=== PATIENT | female | born 1985 | race African-American/Black ===

== ENCOUNTER 2021-10-28 07:56 | Emergency (ER) | payer OTHER, SELFPAY ==
[2021-10-28] MEDS ORDERED: Ondansetron PF 4 MG/2 ML Vial ONE (08:33)
[2021-10-28 08:46] LABS: #Eosinphils 0.2 10x3/uL (0.0-0.5); #Monocytes 0.6 10x3/uL (0.0-1.1); #Neutrophils 5.2 10x3/uL (1.5-8.4); %Basophils 0.5 % (0.0-2.0); %Eosinophils 2.1 % (0.0-6.0); %Lymphocytes 20.1 % (18.0-47.0); %Monocytes 8.3 % (0.0-10.0); %Neutrophils 68.9 % (40.0-75.0); Hemoglobin 11.7 g/dL (12.0-15.5); Mean Corpuscular HGB CONC 32.1 g/dL (32.0-36.0); Mean Corpuscular Hemoglobin 23.9 pg (27.0-33.0); Mean Corpuscular Volume 74.4 fl (81.6-98.3); Platelet Count 384 10x3/uL (150-450); RBC Distribution Width 22.5 % (11.5-14.5); Red Blood Cell (RBC) Count 4.89 10x6/uL (3.90-5.03); White Blood Cell (WBC) Count 7.6 10x3/uL (3.5-10.5)
[2021-10-28 08:51] LABS: ALT (SGPT) 17 U/L (8-55); AST (SGOT) 14 U/L (5-34); Alkaline Phosphatase 44 U/L (40-110); Anion Gap 14 mmol/L (10-20); BUN (Urea Nitrogen) 8 mg/dL (7.0-18.7); Bilirubin, Total 0.4 mg/dL (0.2-1.2); Calc. Creatinine Clearance 0 mL/min (70-130); Calcium 9.7 mg/dL (7.8-10.44); Carbon Dioxide 20 mmol/L (22-29); Chloride 106 mmol/L (98-107); Globulin 3.1 g/dL (2.4-3.5); Glucose 86 mg/dL (70-105); Lipase 10 U/L (8-78); Potassium 3.8 mmol/L (3.5-5.1); Protein, Total 7.1 g/dL (6.0-8.3); Sodium 136 mmol/L (136-145)
[2021-10-28 09:11] LABS: Anisocytosis MODERATE=16-30 cells (100X) (0-5/hpf)
[2021-10-28 09:12] LABS: Microcytosis SLIGHT = 6-15 cells (100X) (0-5/hpf); Ovalocytes MODERATE= 6-15 cells (100X) (0-1/hpf)
[2021-10-28 09:19] LABS: Platelet Morphology Comment Appears Adequate
[2021-10-28] MEDS ORDERED: Metoclopramide HCl 10 MG/2 ML VIAL ONE (09:24)
== END 2021-10-28 10:45 | disposition home or self-care (01) ==
LOC: CSHERS 07:56
DX: O21.9 Vomiting of pregnancy, unspecified (principal); Z3A.08 8 weeks gestation of pregnancy
CPT/HCPCS: 36415; 80053; 82010; 83690; 85025; 96365; 96366; 96368; 96375; J2405; J2765

== ENCOUNTER 2021-12-09 07:01 | Emergency (ER) | payer MEDICAID, OTHER ==
[2021-12-09] MEDS ORDERED: Ondansetron PF 4 MG/2 ML Vial ONE (07:35)
[2021-12-09] MEDS ORDERED: Metoclopramide HCl 10 MG/2 ML VIAL ONE (07:35)
[2021-12-09 07:36] LABS: #Eosinphils 0.1 10x3/uL (0.0-0.5); #Monocytes 0.5 10x3/uL (0.0-1.1); %Basophils 0.4 % (0.0-2.0); %Eosinophils 1.2 % (0.0-6.0); %Lymphocytes 14.6 % (18.0-47.0); %Monocytes 6.9 % (0.0-10.0); %Neutrophils 76.6 % (40.0-75.0); Hemoglobin 11.6 g/dL (12.0-15.5); Mean Corpuscular HGB CONC 32.8 g/dL (32.0-36.0); Mean Corpuscular Hemoglobin 25.8 pg (27.0-33.0); Mean Corpuscular Volume 78.7 fl (81.6-98.3); Mean Platelet Volume 10.2 fl (7.4-10.4); Platelet Count 325 10x3/uL (150-450); RBC Distribution Width 17.5 % (11.5-14.5); White Blood Cell (WBC) Count 7.8 10x3/uL (3.5-10.5)
[2021-12-09 07:52] LABS: ALT (SGPT) 12 U/L (8-55); AST (SGOT) 12 U/L (5-34); Albumin 3.7 g/dL (3.5-5.0); Alkaline Phosphatase 43 U/L (40-110); Anion Gap 14 mmol/L (10-20); BUN (Urea Nitrogen) 6 mg/dL (7.0-18.7); Bilirubin, Total 0.4 mg/dL (0.2-1.2); Calc. Creatinine Clearance 0 mL/min (70-130); Calcium 9.2 mg/dL (7.8-10.44); Carbon Dioxide 20 mmol/L (22-29); Chloride 106 mmol/L (98-107); Estimated GFR 110; Globulin 3.1 g/dL (2.4-3.5); Glucose 88 mg/dL (70-105); Lipase 8 U/L (8-78); Potassium 3.5 mmol/L (3.5-5.1); Protein, Total 6.8 g/dL (6.0-8.3); Sodium 136 mmol/L (136-145)
[2021-12-09 08:43] LABS: Bilirubin Neg (Negative); Blood, Urine 25 (Negative); Clarity Clear (Clear); Glucose, Urine (Dipstick) Normal (Negative); Ketone, Urine 150 mg/dL (Negative); Leukocyte Negative (Negative); Nitrite Negative (Negative); Protein, Urine (Dipstick) 30 mg/dl (Neg-Trace); Urobilinogen Normal mg/dL (Less than 2)
[2021-12-09 09:02] LABS: Bacteria/HPF 2+ HPF (None Seen); RBC/HPF 0-3 HPF (0-3); WBC/HPF 0-3 HPF (0-3)
== END 2021-12-09 08:20 | disposition home or self-care (01) ==
LOC: CSHERS 07:01
DX: O21.0 Mild hyperemesis gravidarum (principal); Z3A.14 14 weeks gestation of pregnancy
CPT/HCPCS: 80053; 81003; 81015; 83690; 85025; 93005; 96365; 96375; J2405; J2765

== ENCOUNTER 2021-12-24 07:29 | Inpatient (IN) | payer OTHER ==
[2021-12-24 08:26] LABS: ALT (SGPT) 23 U/L (8-55); AST (SGOT) 14 U/L (5-34); Albumin 3.7 g/dL (3.5-5.0); Alkaline Phosphatase 47 U/L (40-110); Anion Gap 12 mmol/L (10-20); BUN (Urea Nitrogen) 6 mg/dL (7.0-18.7); Bilirubin, Total 0.4 mg/dL (0.2-1.2); Calc. Creatinine Clearance 0 mL/min (70-130); Calcium 9.5 mg/dL (7.8-10.44); Carbon Dioxide 23 mmol/L (22-29); Chloride 105 mmol/L (98-107); Estimated GFR 98; Globulin 3.4 g/dL (2.4-3.5); Glucose 90 mg/dL (70-105); Potassium 3.8 mmol/L (3.5-5.1); Protein, Total 7.1 g/dL (6.0-8.3)
[2021-12-24 08:32] LABS: Sodium 136 mmol/L (136-145)
[2021-12-24] MEDS ORDERED: Promethazine HCl 25 MG/ML VIAL ONE ×2 (08:44→10:07)
[2021-12-24 12:16] LABS: #Eosinphils 0.1 10x3/uL (0.0-0.5); #Monocytes 0.6 10x3/uL (0.0-1.1); #Neutrophils 5.8 10x3/uL (1.5-8.4); %Basophils 0.3 % (0.0-2.0); %Eosinophils 0.8 % (0.0-6.0); %Lymphocytes 15.4 % (18.0-47.0); %Monocytes 7.9 % (0.0-10.0); %Neutrophils 75.3 % (40.0-75.0); Hemoglobin 11.7 g/dL (12.0-15.5); Mean Corpuscular HGB CONC 34.3 g/dL (32.0-36.0); Mean Corpuscular Hemoglobin 26.5 pg (27.0-33.0); Mean Corpuscular Volume 77.1 fl (81.6-98.3); Mean Platelet Volume 9.5 fl (7.4-10.4); Platelet Count 312 10x3/uL (150-450); RBC Distribution Width 16.1 % (11.5-14.5); Red Blood Cell (RBC) Count 4.42 10x6/uL (3.90-5.03); White Blood Cell (WBC) Count 7.7 10x3/uL (3.5-10.5)
[2021-12-24] MEDS ORDERED: Ondansetron PF 4 MG/2 ML Vial ONE (12:17)
[2021-12-24] MEDS ORDERED: Promethazine HCl 25 MG in Sodium Chloride 0.9% 50 ML IVPB PRN (13:49)
[2021-12-24] MEDS ORDERED: Metoclopramide HCl 10 MG/2 ML VIAL IVP SCH (14:00)
[2021-12-24 14:20] LABS: Bilirubin Neg (Negative); Blood, Urine 25 (Negative); Clarity Clear (Clear); Glucose, Urine (Dipstick) Normal (Negative); Ketone, Urine 150 mg/dL (Negative); Leukocyte Negative (Negative); Nitrite Negative (Negative); Protein, Urine (Dipstick) 15 mg/dl (Neg-Trace); Urobilinogen Normal mg/dL (Less than 2)
[2021-12-24 14:34] LABS: Bacteria/HPF Rare-Few HPF (None Seen); Mucous/LPF 1+ LPF (<2+); Squamous Epithelial 0-3 HPF (0-3); WBC/HPF 0-3 HPF (0-3)
[2021-12-24 14:51] LABS: SARS-CoV-2 NAA Rapid Test Not Detected (NotDetected)
[2021-12-24 16:42] VITALS: BMI 29.0
[2021-12-24] MEDS: Lactated Ringer's 1,000 ML IV SCH (16:47)
[2021-12-24 17:57] LABS: Creatinine, Urine 178.71 mg/dL (47-110)
[2021-12-24] MEDS ORDERED: Famotidine/PF 20 mg/2ml Vial SLOW IVP SCH (21:00)
[2021-12-24] MEDS ORDERED: Mirtazapine 15 MG Soltab PO SCH (21:00)
[2021-12-24] MEDS: prednisoLONE 15 MG/5 ML UDCUP PO SCH (21:14)
[2021-12-24] MEDS: Labetalol HCl 100 MG TAB PO SCH (21:15)
[2021-12-25] MEDS: Lactated Ringer's 1,000 ML IV SCH ×2 (00:25→07:24)
[2021-12-25] MEDS ORDERED: Metoclopramide HCl 10 MG/2 ML VIAL IVP SCH (02:00)
[2021-12-25] MEDS ORDERED: Promethazine 25 MG TAB PO PRN (07:15)
[2021-12-25] MEDS: Labetalol HCl 100 MG TAB PO SCH (08:59)
[2021-12-25] MEDS: prednisoLONE 15 MG/5 ML UDCUP PO SCH (08:59)
[2021-12-25] MEDS ORDERED: Famotidine 20 MG TAB PO SCH (09:00)
[2021-12-25] MEDS ORDERED: Metoclopramide HCl 10 MG TAB PO SCH (10:00)
[2021-12-25 12:04] VITALS: BP 127/77; TEMP 98.4
== END 2021-12-25 17:10 | disposition home or self-care (01) | DRG 832 ==
LOC: CSHERS 07:29 → CSHPP 16:16
PROVIDERS: ADMIT Obstetrics & Gynecology; ATTEND Obstetrics & Gynecology
DX: O21.0 Mild hyperemesis gravidarum (principal); O10.912 Unspecified pre-existing hypertension complicating pregnancy, second trimester; O99.322 Drug use complicating pregnancy, second trimester; Z20.822 Contact with and (suspected) exposure to COVID-19; O34.211 Maternal care for low transverse scar from previous cesarean delivery; Z79.899 Other long term (current) drug therapy; Z3A.17 17 weeks gestation of pregnancy; Z88.7 Allergy status to serum and vaccine; F12.90 Cannabis use, unspecified, uncomplicated; Z71.51 Drug abuse counseling and surveillance of drug abuser
CPT/HCPCS: 36415; 80053; 81003; 81015; 82570; 84156; 85025; 87086; 96361; 96365; 96366; 96375; J2405; J2550; J2765; J7120; J7510; S0028; U0002

== ENCOUNTER 2022-03-12 17:02 | Inpatient (IN) | payer OTHER ==
[2022-03-12] MEDS ORDERED: Labetalol HCl 100 MG/20 ML VIAL SLOW IVP PRN ×3 (17:04)
[2022-03-12] MEDS ORDERED: Ondansetron PF 4 MG/2 ML Vial IVP PRN (17:04)
[2022-03-12] MEDS ORDERED: hydrALAZINE 20 MG/ML VIAL SLOW IVP PRN (17:04)
[2022-03-12] MEDS ORDERED: Calcium Gluc 4.6 MEQ/10 ML (100 MG/ML) SLOW IVP PRN (17:04)
[2022-03-12] MEDS ORDERED: Lorazepam 2 MG/ML VIAL SLOW IVP PRN (17:04)
[2022-03-12] MEDS ORDERED: Promethazine HCl 25 MG/ML VIAL IM PRN (17:04)
[2022-03-12] MEDS: Magnesium Sulfate 20 gm/500 ml 20 GM/500 ML BAG IVPB SCH (17:15)
[2022-03-12] MEDS ORDERED: Lidocaine Viscous Sol 2% 15 ml UD Cup SSW SCH (17:30)
[2022-03-12] MEDS: Betamet Acet/Betamet Na Ph 30 MG/5 ML VIAL IM SCH (17:51)
[2022-03-12 17:58] LABS: Amphetamine Not Detected (NotDetected); Barbiturates Screen Not Detected (NotDetected); Benzodiazepine Screen Not Detected (NotDetected); Cocaine Metabolite Screen Not Detected (NotDetected); Methadone Not Detected (NotDetected); Methamphetamine Not Detected (NotDetected); Opiate Screen Detected (NotDetected); Oxycodone Screen Not Detected (NotDetected); Phencyclidine (PCP) Not Detected (NotDetected); THC/Cannabinoid Screen Detected (NotDetected); Tricyclic Screen Not Detected (NotDetected)
[2022-03-12] MEDS ORDERED: NIFEdipine XL 30 MG TAB PO SCH (19:00)
[2022-03-12 19:51] LABS: Hemoglobin 10.6 g/dL (12.0-15.5); Mean Corpuscular HGB CONC 32.6 g/dL (32.0-36.0); Mean Corpuscular Hemoglobin 26.6 pg (27.0-33.0); Mean Corpuscular Volume 81.7 fl (81.6-98.3); Mean Platelet Volume 10.2 fl (7.4-10.4); Platelet Count 299 10x3/uL (150-450); RBC Distribution Width 15.1 % (11.5-14.5); Red Blood Cell (RBC) Count 3.98 10x6/uL (3.90-5.03); White Blood Cell (WBC) Count 10.7 10x3/uL (3.5-10.5)
[2022-03-12] MEDS: HYDROcodone/Acetaminophen 5/325 mg Tablet PO PRN (20:00)
[2022-03-12 20:16] LABS: Syphilis Antibody Nonreactive (Nonreactive); Syphilis Antibody Index 0.05 S/CO (<1.00 Non-Reactive)
[2022-03-12 20:18] LABS: HBSAg Index 0.17 S/CO (0-0.99); Hep B Surf Ag Non-Reactive S/CO (NonReactive)
[2022-03-12] MEDS ORDERED: Milk Of Magnesia 30 ML UDCUP PO SCH (21:00)
[2022-03-12] MEDS: AMOXicillin 250 MG CAP PO SCH (21:18)
[2022-03-12] MEDS: Mirtazapine 15 MG TAB PO SCH (21:18)
[2022-03-13] MEDS: Metoclopramide HCl 10 MG TAB PO SCH ×4 (03:47→18:02)
[2022-03-13] MEDS: AMOXicillin 250 MG CAP PO SCH ×3 (07:21→23:16)
[2022-03-13] MEDS: Acetaminophen 325 MG TAB PO SCH ×3 (08:12→18:02)
[2022-03-13] MEDS: HYDROcodone/Acetaminophen 5/325 mg Tablet PO PRN (12:30)
[2022-03-13 12:42] VITALS: BMI 36.9
[2022-03-13] MEDS ORDERED: Docusate 100 MG CAP PO SCH (13:15)
[2022-03-13] MEDS: NIFEdipine XL 30 MG TAB PO SCH ×2 (15:22→21:18)
[2022-03-13] MEDS: Magnesium Sulfate 20 gm/500 ml 20 GM/500 ML BAG IVPB SCH (15:32)
[2022-03-13] MEDS: Betamet Acet/Betamet Na Ph 30 MG/5 ML VIAL IM SCH (17:51)
[2022-03-13] MEDS: Lidocaine Viscous Sol 2% 15 ml UD Cup SSP SCH (18:34)
[2022-03-13] MEDS: Mirtazapine 15 MG TAB PO SCH (21:30)
[2022-03-14] MEDS: Magnesium Sulfate 20 gm/500 ml 20 GM/500 ML BAG IVPB SCH (05:04)
[2022-03-14 05:35] LABS: Hemoglobin 10.3 g/dL (12.0-15.5); Mean Corpuscular HGB CONC 32.8 g/dL (32.0-36.0); Mean Corpuscular Hemoglobin 26.5 pg (27.0-33.0); Mean Corpuscular Volume 80.7 fl (81.6-98.3); Mean Platelet Volume 10.3 fl (7.4-10.4); Platelet Count 314 10x3/uL (150-450); RBC Distribution Width 15.5 % (11.5-14.5); Red Blood Cell (RBC) Count 3.89 10x6/uL (3.90-5.03); White Blood Cell (WBC) Count 7.9 10x3/uL (3.5-10.5)
[2022-03-14 05:46] LABS: ALT (SGPT) 31 U/L (8-55); AST (SGOT) 20 U/L (5-34); Albumin 3.3 g/dL (3.5-5.0); Alkaline Phosphatase 66 U/L (40-110); Anion Gap 13 mmol/L (10-20); BUN (Urea Nitrogen) 7 mg/dL (7.0-18.7); Bilirubin, Total 0.2 mg/dL (0.2-1.2); Calc. Creatinine Clearance 215 mL/min (70-130); Calcium 7.2 mg/dL (7.8-10.44); Carbon Dioxide 19 mmol/L (22-29); Chloride 108 mmol/L (98-107); Estimated GFR 119; Globulin 3.2 g/dL (2.4-3.5); Glucose 118 mg/dL (70-105); Protein, Total 6.5 g/dL (6.0-8.3); Sodium 136 mmol/L (136-145)
[2022-03-14] MEDS: AMOXicillin 250 MG CAP PO SCH ×2 (07:36→19:48)
[2022-03-14] MEDS: Metoclopramide HCl 10 MG TAB PO SCH ×2 (12:12→23:07)
[2022-03-14] MEDS: NIFEdipine XL 30 MG TAB PO SCH (21:07)
[2022-03-14] MEDS: Mirtazapine 15 MG TAB PO SCH (22:00)
[2022-03-14] MEDS ORDERED: Famotidine 20 MG TAB PO SCH (23:00)
[2022-03-15] MEDS: Acetaminophen 325 MG TAB PO SCH ×2 (03:54→08:27)
[2022-03-15] MEDS: AMOXicillin 250 MG CAP PO SCH ×2 (03:54→12:35)
[2022-03-15] MEDS: Metoclopramide HCl 10 MG TAB PO SCH ×3 (08:26→12:35)
[2022-03-15] MEDS: Lidocaine Viscous Sol 2% 15 ml UD Cup SSP SCH (08:27)
[2022-03-15] MEDS ORDERED: Famotidine 20 MG TAB PO SCH (09:00)
[2022-03-15 12:00] VITALS: BP 129/85; TEMP 98.7
== END 2022-03-15 15:30 | disposition home or self-care (01) | DRG 832 ==
LOC: CSHLD 17:02 → CSHANTE 03-14 21:55
PROVIDERS: ADMIT Obstetrics & Gynecology; ATTEND Obstetrics & Gynecology
DX: O10.913 Unspecified pre-existing hypertension complicating pregnancy, third trimester (principal); O99.323 Drug use complicating pregnancy, third trimester; F12.90 Cannabis use, unspecified, uncomplicated; O34.211 Maternal care for low transverse scar from previous cesarean delivery; Z88.7 Allergy status to serum and vaccine; Z3A.29 29 weeks gestation of pregnancy; Z79.899 Other long term (current) drug therapy; F32.A Depression, unspecified; O99.343 Other mental disorders complicating pregnancy, third trimester; Z91.14 Patient's other noncompliance with medication regimen; O11.3 Pre-existing hypertension with pre-eclampsia, third trimester
CPT/HCPCS: 36415; 51702; 76815; 80053; 80306; 82570; 84156; 85027; 86780; 86850; 86900; 86901; 87340; J0702; J3475

== ENCOUNTER 2022-04-04 10:18 | Day surgery (SDC) | payer OTHER ==
[2022-04-04 10:48] VITALS: BMI 40.3
[2022-04-04] MEDS: Lactated Ringer's 1,000 ML IV SCH ×2 (11:14→12:18)
[2022-04-04] MEDS ORDERED: Ondansetron PF 4 MG/2 ML Vial ONE (12:06)
[2022-04-04] MEDS ORDERED: Ondansetron PF 4 MG/2 ML Vial IVP SCH (13:00)
== END 2022-04-04 13:27 | disposition home or self-care (01) ==
LOC: CSHLD/OP 10:18
PROVIDERS: ATTEND Obstetrics & Gynecology
DX: O21.2 Late vomiting of pregnancy (principal); O16.3 Unspecified maternal hypertension, third trimester; Z3A.31 31 weeks gestation of pregnancy; Z88.7 Allergy status to serum and vaccine
CPT/HCPCS: 96360; 96361; 96375; 99282; J2405

== ENCOUNTER 2022-04-20 23:02 | Day surgery (SDC) | payer OTHER ==
[2022-04-20 23:38] VITALS: BMI 40.3
[2022-04-21] MEDS ORDERED: hydrALAZINE 20 MG/ML VIAL SLOW IVP PRN (00:07)
[2022-04-21] MEDS ORDERED: Ondansetron HCl/PF 8 MG, Admixture Fee 1 EACH in Sodium Chloride 0.9% 50 ML IVPB SCH (00:15)
[2022-04-21] MEDS ORDERED: Lactated Ringer's 1,000 ML IV SCH (00:15)
[2022-04-21 00:43] LABS: Hemoglobin 10.4 g/dL (12.0-15.5); Mean Corpuscular HGB CONC 33.2 g/dL (32.0-36.0); Mean Corpuscular Hemoglobin 26.6 pg (27.0-33.0); Mean Corpuscular Volume 80.1 fl (81.6-98.3); Mean Platelet Volume 10.4 fl (7.4-10.4); Platelet Count 296 10x3/uL (150-450); RBC Distribution Width 15.6 % (11.5-14.5); Red Blood Cell (RBC) Count 3.91 10x6/uL (3.90-5.03); White Blood Cell (WBC) Count 9.2 10x3/uL (3.5-10.5)
[2022-04-21 00:50] LABS: ALT (SGPT) 33 U/L (8-55); AST (SGOT) 28 U/L (5-34); Albumin 3.2 g/dL (3.5-5.0); Alkaline Phosphatase 88 U/L (40-110); Anion Gap 14 mmol/L (10-20); BUN (Urea Nitrogen) 5 mg/dL (7.0-18.7); Bilirubin, Total 0.2 mg/dL (0.2-1.2); Calc. Creatinine Clearance 208 mL/min (70-130); Calcium 8.9 mg/dL (7.8-10.44); Carbon Dioxide 17 mmol/L (22-29); Chloride 109 mmol/L (98-107); Estimated GFR 116; Globulin 3.2 g/dL (2.4-3.5); Glucose 84 mg/dL (70-105); Potassium 3.6 mmol/L (3.5-5.1); Protein, Total 6.4 g/dL (6.0-8.3); Sodium 136 mmol/L (136-145)
[2022-04-21 02:42] LABS: Bilirubin Neg (Negative); Blood, Urine Negative (Negative); Glucose, Urine (Dipstick) Normal (Negative); Ketone, Urine Negative (Negative); Leukocyte Negative (Negative); Nitrite Negative (Negative); Protein, Urine (Dipstick) 15 mg/dl (Neg-Trace); Specific Gravity, Urine 1.015 (1.005-1.030); Urobilinogen Normal mg/dL (Less than 2); pH, Urine 6.5 (5.0-9.0)
[2022-04-21 02:47] LABS: Clarity Clear (Clear)
[2022-04-21] MEDS ORDERED: Ondansetron ODT 4 MG TAB PO PRN (02:57)
== END 2022-04-21 03:05 | disposition home or self-care (01) ==
LOC: CSHERS 23:02 → CSHLD/OP 23:16
PROVIDERS: ATTEND Obstetrics & Gynecology
DX: O21.2 Late vomiting of pregnancy (principal); Z3A.34 34 weeks gestation of pregnancy; Z79.899 Other long term (current) drug therapy; Z88.7 Allergy status to serum and vaccine; Z98.890 Other specified postprocedural states
CPT/HCPCS: 80053; 81003; 85027; 96361; 96365; 99283; J2405

== ENCOUNTER 2022-04-28 08:51 | Day surgery (SDC) | payer OTHER ==
[2022-04-28 09:26] VITALS: BMI 39.5
[2022-04-28] MEDS ORDERED: hydrALAZINE 20 MG/ML VIAL SLOW IVP PRN (09:39)
[2022-04-28 10:22] LABS: #Eosinphils 0.1 10x3/uL (0.0-0.5); #Monocytes 0.6 10x3/uL (0.0-1.1); #Neutrophils 5.2 10x3/uL (1.5-8.4); %Basophils 0.4 % (0.0-2.0); %Lymphocytes 16.2 % (18.0-47.0); %Monocytes 8.8 % (0.0-10.0); %Neutrophils 72.9 % (40.0-75.0); Hemoglobin 10.4 g/dL (12.0-15.5); Mean Corpuscular HGB CONC 33.4 g/dL (32.0-36.0); Mean Corpuscular Hemoglobin 27.2 pg (27.0-33.0); Mean Corpuscular Volume 81.4 fl (81.6-98.3); Mean Platelet Volume 10.5 fl (7.4-10.4); Platelet Count 267 10x3/uL (150-450); Red Blood Cell (RBC) Count 3.82 10x6/uL (3.90-5.03); White Blood Cell (WBC) Count 7.1 10x3/uL (3.5-10.5)
[2022-04-28 10:42] LABS: ALT (SGPT) 33 U/L (8-55); AST (SGOT) 24 U/L (5-34); Albumin 3.2 g/dL (3.5-5.0); Alkaline Phosphatase 97 U/L (40-110); Anion Gap 13 mmol/L (10-20); BUN (Urea Nitrogen) 5 mg/dL (7.0-18.7); Bilirubin, Total 0.4 mg/dL (0.2-1.2); Calc. Creatinine Clearance 184 mL/min (70-130); Carbon Dioxide 20 mmol/L (22-29); Chloride 106 mmol/L (98-107); Estimated GFR 107; Globulin 3.2 g/dL (2.4-3.5); Glucose 70 mg/dL (70-105); Potassium 3.6 mmol/L (3.5-5.1); Protein, Total 6.4 g/dL (6.0-8.3); Sodium 135 mmol/L (136-145)
[2022-04-28 11:04] LABS: Bilirubin Neg (Negative); Blood, Urine 150 (Negative); CAUTI Indications for Culture Pregnancy; Clarity Clear (Clear); Glucose, Urine (Dipstick) Normal (Negative); Ketone, Urine 150 mg/dL (Negative); Leukocyte Negative (Negative); Nitrite Negative (Negative); Protein, Urine (Dipstick) 100 mg/dl (Neg-Trace); Urobilinogen Normal mg/dL (Less than 2)
[2022-04-28 11:05] LABS: Amphetamine Not Detected (NotDetected); Barbiturates Screen Not Detected (NotDetected); Benzodiazepine Screen Not Detected (NotDetected); Cocaine Metabolite Screen Not Detected (NotDetected); Methadone Not Detected (NotDetected); Methamphetamine Not Detected (NotDetected); Opiate Screen Not Detected (NotDetected); Oxycodone Screen Not Detected (NotDetected); Phencyclidine (PCP) Not Detected (NotDetected); THC/Cannabinoid Screen Detected (NotDetected); Tricyclic Screen Not Detected (NotDetected)
[2022-04-28 11:09] LABS: Urine Culture Reflex Yes Yes
[2022-04-28 11:15] LABS: Creatinine, Urine 285.15 mg/dL (47-110)
[2022-04-28 11:20] LABS: WBC/HPF 0-3 HPF (0-3)
[2022-04-28 11:21] LABS: Bacteria/HPF Rare-Few HPF (None Seen)
== END 2022-04-28 12:53 | disposition home health service (06) ==
LOC: CSHLD/OP 08:51
PROVIDERS: ATTEND Obstetrics & Gynecology
DX: O16.3 Unspecified maternal hypertension, third trimester (principal); O99.283 Endocrine, nutritional and metabolic diseases complicating pregnancy, third trimester; E86.0 Dehydration; Z3A.35 35 weeks gestation of pregnancy; Z88.7 Allergy status to serum and vaccine
CPT/HCPCS: 36415; 80053; 80306; 81001; 82570; 84156; 85025; 87086; 99283

== ENCOUNTER 2022-05-09 10:35 | Outpatient (CLI) | payer OTHER ==
[2022-05-09 11:17] LABS: #Eosinphils 0.1 10x3/uL (0.0-0.5); #Monocytes 0.6 10x3/uL (0.0-1.1); #Neutrophils 4.5 10x3/uL (1.5-8.4); %Basophils 0.3 % (0.0-2.0); %Eosinophils 2.2 % (0.0-6.0); %Lymphocytes 17.1 % (18.0-47.0); %Monocytes 8.8 % (0.0-10.0); Hemoglobin 10.1 g/dL (12.0-15.5); Mean Corpuscular HGB CONC 33.8 g/dL (32.0-36.0); Mean Corpuscular Hemoglobin 26.8 pg (27.0-33.0); Mean Corpuscular Volume 79.3 fl (81.6-98.3); Mean Platelet Volume 10.1 fl (7.4-10.4); Platelet Count 254 10x3/uL (150-450); RBC Distribution Width 16.1 % (11.5-14.5); Red Blood Cell (RBC) Count 3.77 10x6/uL (3.90-5.03); White Blood Cell (WBC) Count 6.3 10x3/uL (3.5-10.5)
[2022-05-09 11:46] LABS: SARS-CoV-2 NAA Rapid Test Not Detected (NotDetected)
[2022-05-09 11:53] LABS: Syphilis Antibody Nonreactive (Nonreactive); Syphilis Antibody Index 0.04 S/CO (<1.00 Non-Reactive)
[2022-05-09 11:54] LABS: HBSAg Index 0.16 S/CO (0-0.99); Hep B Surf Ag Non-Reactive S/CO (NonReactive)
== END 2022-05-09 10:36 | disposition home or self-care (01) ==
LOC: CSHLAB 10:35
PROVIDERS: ATTEND Advanced Practice Midwife
DX: Z01.812 Encounter for preprocedural laboratory examination (principal); Z20.822 Contact with and (suspected) exposure to COVID-19
CPT/HCPCS: 85025; 86780; 86850; 86900; 86901; 87340; U0002

== ENCOUNTER 2022-05-10 05:27 | Inpatient (IN) | payer OTHER ==
[2022-05-10 05:32] VITALS: BMI 39.5
[2022-05-10] MEDS ORDERED: Promethazine HCl 25 MG/ML VIAL IM PRN ×2 (05:37→08:32)
[2022-05-10] MEDS ORDERED: Ondansetron PF 4 MG/2 ML Vial IVP PRN ×3 (05:37→11:16)
[2022-05-10] MEDS ORDERED: hydrALAZINE 20 MG/ML VIAL SLOW IVP PRN ×2 (05:37→11:16)
[2022-05-10] MEDS ORDERED: Famotidine/PF 20 mg/2ml Vial SLOW IVP PRN (05:37)
[2022-05-10] MEDS ORDERED: CEFAZOLIN 2 GM in Sodium Chloride 0.9% 100 ML IVPB SCH (05:37)
[2022-05-10] MEDS ORDERED: Bicitra 30 ML UDCUP PO PRN (05:37)
[2022-05-10 06:45] LABS: Amphetamine Not Detected (NotDetected); Barbiturates Screen Not Detected (NotDetected); Benzodiazepine Screen Not Detected (NotDetected); Cocaine Metabolite Screen Not Detected (NotDetected); Methadone Not Detected (NotDetected); Methamphetamine Not Detected (NotDetected); Opiate Screen Not Detected (NotDetected); Oxycodone Screen Not Detected (NotDetected); Phencyclidine (PCP) Not Detected (NotDetected); THC/Cannabinoid Screen Detected (NotDetected); Tricyclic Screen Not Detected (NotDetected)
[2022-05-10] MEDS: Lactated Ringer's 1,000 ML IV SCH ×2 (06:45→06:46)
[2022-05-10] MEDS ORDERED: Morphine PF 10 MG/10 ML VIAL ONE (07:16)
[2022-05-10] MEDS ORDERED: Ketorolac Tromethamine 30 MG/ML VIAL ONE (07:16)
[2022-05-10] MEDS ORDERED: Phenylephrine 40 MG/NS 250 ML 250 ML ONE (07:16)
[2022-05-10] MEDS ORDERED: Dexamethasone 4 mg/ml Vial ONE (07:17)
[2022-05-10] MEDS ORDERED: Oxytocin 10 UNITS/ML VIAL ONE (07:17)
[2022-05-10] MEDS ORDERED: Ondansetron PF 4 MG/2 ML Vial ONE (07:17)
[2022-05-10] MEDS ORDERED: Metoclopramide HCl 10 MG/2 ML VIAL ONE (07:17)
[2022-05-10] MEDS ORDERED: Lidocaine 2% PF 100 mg/5 ml Syringe ONE (07:23)
[2022-05-10] MEDS ORDERED: Moisturizing Cream (Eucerin) 113 GM JAR TOP PRN (08:32)
[2022-05-10] MEDS ORDERED: Naloxone HCl 0.4 mg/ml Vial IVP PRN ×2 (08:32)
[2022-05-10] MEDS ORDERED: Fentanyl 100 MCG/2 ML VIAL SLOW IVP PRN (08:32)
[2022-05-10] MEDS ORDERED: Naloxone HCl 0.4 mg/ml Vial IV PRN (08:32)
[2022-05-10] MEDS ORDERED: diphenhydrAMINE 50 MG/ML VIAL IVP PRN (08:32)
[2022-05-10] MEDS ORDERED: Promethazine HCl 25 MG SUPP PR PRN (08:32)
[2022-05-10] MEDS ORDERED: Meperidine HCl/PF 25 MG/ML VIAL SLOW IVP PRN (08:32)
[2022-05-10] MEDS ORDERED: Ondansetron HCl/PF 4 MG/2 ML Vial IVP PRN (08:32)
[2022-05-10] MEDS ORDERED: Communication Order-Pharmacy FS SCH (08:45)
[2022-05-10] MEDS ORDERED: NIFEdipine XL 30 MG TAB PO ONE (11:06)
[2022-05-10] MEDS ORDERED: diphenhydrAMINE 25 MG CAP PO PRN (11:16)
[2022-05-10] MEDS ORDERED: Lanolin Ointment 7 GM TUBE TOP PRN (11:16)
[2022-05-10] MEDS ORDERED: Bisacodyl 10 MG SUPP PR PRN (11:16)
[2022-05-10] MEDS ORDERED: Boostrix 0.5 ML (Tdap) VIAL (>/=7 yrs of age) IM ONE (11:16)
[2022-05-10] MEDS ORDERED: NS w/ Oxytocin 30 units 500 ML IV SCH (11:16)
[2022-05-10] MEDS ORDERED: Ferrous Sulfate 325 MG TAB PO SCH (12:00)
[2022-05-10] MEDS ORDERED: Docusate 100 MG CAP PO SCH (12:00)
[2022-05-10] MEDS ORDERED: Prenatal Vitamin 1 TAB PO SCH (12:00)
[2022-05-10] MEDS ORDERED: NIFEdipine XL 30 MG TAB PO SCH (12:00)
[2022-05-10] MEDS ORDERED: Hydrocortisone 1% Cream 30 GM TUBE TOP PRN (16:36)
[2022-05-10] MEDS: Ketorolac Tromethamine 30 MG/ML VIAL IVP PRN (18:32)
[2022-05-10] MEDS: Docusate 100 MG CAP PO SCH (20:23)
[2022-05-10] MEDS ORDERED: HYDROcodone/Acetaminophen 5/325 mg Tablet PO PRN (20:45)
[2022-05-10] MEDS: Ferrous Sulfate 325 MG TAB PO SCH (23:35)
[2022-05-11 05:33] LABS: Mean Corpuscular HGB CONC 33.4 g/dL (32.0-36.0); Mean Corpuscular Hemoglobin 26.2 pg (27.0-33.0); Mean Corpuscular Volume 78.5 fl (81.6-98.3); Mean Platelet Volume 10.3 fl (7.4-10.4); Platelet Count 277 10x3/uL (150-450); RBC Distribution Width 16.2 % (11.5-14.5); Red Blood Cell (RBC) Count 3.81 10x6/uL (3.90-5.03); White Blood Cell (WBC) Count 12.6 10x3/uL (3.5-10.5)
[2022-05-11] MEDS: Docusate 100 MG CAP PO SCH ×2 (07:47→20:29)
[2022-05-11] MEDS: Simethicone Chewable 80 MG TAB PO PRN ×2 (07:48→14:17)
[2022-05-11] MEDS: Ketorolac Tromethamine 30 MG/ML VIAL IVP PRN (07:48)
[2022-05-11] MEDS: HYDROcodone/Acetaminophen 5/325 mg Tablet PO PRN ×3 (07:48→20:29)
[2022-05-11] MEDS: Ferrous Sulfate 325 MG TAB PO SCH ×2 (07:57→22:24)
[2022-05-11] MEDS: Prenatal Vitamin 1 TAB PO SCH (08:00)
[2022-05-11] MEDS ORDERED: NIFEdipine XL 30 MG TAB PO SCH (09:00)
[2022-05-11] MEDS: Ibuprofen 800 MG TAB PO SCH (21:24)
[2022-05-12] MEDS: HYDROcodone/Acetaminophen 5/325 mg Tablet PO PRN ×2 (06:13→12:16)
[2022-05-12] MEDS: Ibuprofen 800 MG TAB PO SCH ×2 (06:14→14:02)
[2022-05-12] MEDS: Simethicone Chewable 80 MG TAB PO PRN ×2 (06:19→12:16)
[2022-05-12] MEDS: Ferrous Sulfate 325 MG TAB PO SCH (08:46)
[2022-05-12] MEDS: Prenatal Vitamin 1 TAB PO SCH (08:46)
[2022-05-12] MEDS: Docusate 100 MG CAP PO SCH (08:46)
[2022-05-12] MEDS ORDERED: NIFEdipine XL 60 MG TAB PO SCH (09:00)
[2022-05-12 11:45] VITALS: BP 142/98; TEMP 98.2
== END 2022-05-12 17:15 | disposition home or self-care (01) | DRG 788 ==
LOC: CSHLD 05:27 → CSHPP 12:20
PROVIDERS: ADMIT Obstetrics & Gynecology; ATTEND Obstetrics & Gynecology
PROC: 10D00Z1 Extraction of Products of Conception, Low, Open Approach (ICD-10-PCS; principal; 2022-05-10)
DX: O10.92 Unspecified pre-existing hypertension complicating childbirth (principal); O34.211 Maternal care for low transverse scar from previous cesarean delivery; Z91.199 Patient's noncompliance with other medical treatment and regimen due to unspecified reason; Z3A.37 37 weeks gestation of pregnancy; Z37.0 Single live birth; Z79.899 Other long term (current) drug therapy; Z88.7 Allergy status to serum and vaccine
CPT/HCPCS: 51702; 80306; 85025; 85027; 86780; 86850; 86900; 86901; 87340; J0360; J1100; J1885; J2001; J2274; J2405; J2550; J2590; J2765; J3490; J7120; S0028; U0002